=== PATIENT | female | born 1955 | race Caucasian/White ===

== ENCOUNTER → 2021-09-29 | Outpatient (CLI) | payer OTHER ==
[2021-09-29 16:22] LABS: BASOPHILS PERCENT AUTO 2 % (0-2); EOSINOPHILS ABSOLUTE AUTO 0.42 K/mm3 (0.00-0.68); EOSINOPHILS PERCENT AUTO 9 % (0-6); Hematocrit 39.6 % (33.0-51.0); Hemoglobin 13.1 g/dL (11.5-16.0); IMMATURE GRAN ABSOLUTE AUTO 0.02 K/mm3 (0.00-0.10); IMMATURE GRAN PERCENT AUTO 0 % (0-1); LYMPHOCYTES ABSOLUTE AUTO 1.26 K/mm3 (0.84-5.20); LYMPHOCYTES PERCENT AUTO 28 % (21-46); MONOCYTES ABSOLUTE AUTO 0.34 K/mm3 (0.16-1.47); MONOCYTES PERCENT AUTO 8 % (4-13); Mean Corpuscular HGB 28.7 pg (26.0-34.0); Mean Corpuscular HGB Conc 33.1 g/dL (31.5-36.5); Mean Corpuscular Volume 87 fL (80-100); Mean Platelet Volume 10.7 fL (9.1-12.4); NEUTROPHILS ABSOLUTE AUTO 2.41 K/mm3 (1.96-9.15); NEUTROPHILS PERCENT AUTO 53 % (41-73); Platelet Count 279 K/mm3 (150-400); RDW Coefficient Variation 13.5 % (11.7-14.2); RDW Standard Deviation 42.9 fL (35.1-46.3); Red Blood Cell Count 4.56 M/mm3 (3.80-5.20); White Blood Cell Count 4.55 K/mm3 (4.00-11.30)
[2021-09-29 17:05] LABS: Albumin, Blood 3.2 g/dL (3.4-5.0); Albumin/Globulin Ratio 0.8 (0.8-1.8); Bilirubin, Total 0.8 mg/dL (0.1-1.0); Bun/Creatinine Ratio 15.2 (12.0-20.0); Calcium, Blood 9.8 mg/dL (8.5-10.1); Creatinine, Blood 1.12 mg/dL (0.40-1.00); Globulin, Blood 4.2 g/dL (2.2-4.0); Potassium, Blood 3.5 mmol/L (3.5-5.5); Total Protein, Blood 7.4 g/dL (6.4-8.2)
== END | disposition home or self-care (01) ==
LOC: LAB SHORT 13:25
PROVIDERS: Internal Medicine Rheumatology
DX: M32.9 Systemic lupus erythematosus, unspecified (principal)
CPT/HCPCS: 80053; 85025; 85651

== ENCOUNTER → 2023-03-01 | Outpatient (CLI) | payer OTHER ==
[2023-03-02 15:59] LABS: BASOPHILS ABSOLUTE AUTO 0.12 K/mm3 (0.00-0.23); BASOPHILS PERCENT AUTO 2 % (0-2); EOSINOPHILS ABSOLUTE AUTO 0.64 K/mm3 (0.00-0.68); EOSINOPHILS PERCENT AUTO 10 % (0-6); Hematocrit 42.9 % (33.0-51.0); Hemoglobin 13.5 g/dL (11.5-16.0); IMMATURE GRAN ABSOLUTE AUTO 0.01 K/mm3 (0.00-0.10); IMMATURE GRAN PERCENT AUTO 0 % (0-1); LYMPHOCYTES ABSOLUTE AUTO 1.64 K/mm3 (0.84-5.20); LYMPHOCYTES PERCENT AUTO 27 % (21-46); MONOCYTES ABSOLUTE AUTO 0.48 K/mm3 (0.16-1.47); MONOCYTES PERCENT AUTO 8 % (4-13); Mean Corpuscular HGB Conc 31.5 g/dL (31.5-36.5); Mean Corpuscular Volume 92 fL (80-100); Mean Platelet Volume 10.4 fL (9.1-12.4); NEUTROPHILS ABSOLUTE AUTO 3.28 K/mm3 (1.96-9.15); NEUTROPHILS PERCENT AUTO 53 % (41-73); Platelet Count 323 K/mm3 (150-400); RDW Coefficient Variation 14.4 % (11.7-14.2); RDW Standard Deviation 48.7 fL (35.1-46.3); Red Blood Cell Count 4.65 M/mm3 (3.80-5.20); White Blood Cell Count 6.17 K/mm3 (4.00-11.30)
[2023-03-02 17:01] LABS: Albumin, Blood 3.6 g/dL (3.4-5.0); Bilirubin, Total 0.6 mg/dL (0.1-1.0); Bun/Creatinine Ratio 26.2 (12.0-20.0); Calcium, Blood 9.3 mg/dL (8.5-10.1); Creatinine, Blood 1.07 mg/dL (0.40-1.00); Globulin, Blood 3.6 g/dL (2.2-4.0); Potassium, Blood 3.7 mmol/L (3.5-5.5); Total Protein, Blood 7.2 g/dL (6.4-8.2)
== END | disposition home or self-care (01) ==
LOC: LAB SHORT 12:39
PROVIDERS: Internal Medicine Rheumatology
DX: M32.9 Systemic lupus erythematosus, unspecified (principal)
CPT/HCPCS: 80053; 85025; 85651

== ENCOUNTER 2024-10-13 05:59 | Day surgery (SDC) | payer OTHER ==
[2024-10-13] VITALS (17 sets, daily range): BP systolic 106–150; BP diastolic 47–79
[~2024-10-13] VITALS: Ht 167.6 cm; Wt 106.9 kg
[~2024-10-13 05:59] MED LIST: ALBU90OI INH; CYCL10 PO; DOCU100 PO; EUTHYROX25 MCG PO; FLONASE ALLERG9.9 ML; HYDCHL25 PO; Lisinopril2.5 MG PO; NAPR220 PO; PLAQUENIL200 MG PO; Serevent Disku50 MCG INH; TRAM50 PO; [UNRECOGNIZED DRUG - CODE] PO
[2024-10-13] MEDS ORDERED: Tranexamic Acid 100 ML IV SCH (06:20)
[2024-10-13] MEDS ORDERED: Lactated Ringer's 1,000 ML IV SCH ×2 (06:20→08:05)
[2024-10-13] MEDS ORDERED: Acetaminophen 500 MG Tab PO SCH ×2 (06:20→16:00)
[2024-10-13] MEDS ORDERED: Ropivacaine 0.5% HCl/Pf 123.125 MG,EPINEPHrine HCL 0.25 MG,Ketorolac Tromethamine 15 MG... INFIL SCH (06:20)
[2024-10-13] MEDS ORDERED: OxyCODONE HCL 10 MG TABCR PO SCH (06:20)
[2024-10-13] MEDS ORDERED: CeFAZolin Sodium 2,000 MG in NS 100 ML IV SCH ×2 (06:20→16:00)
[2024-10-13] MEDS ORDERED: Chlorhexidine Mouth Care 15 ML UDC MT SCH (06:20)
[2024-10-13] MEDS ORDERED: HYDHCL25 (06:29)
[2024-10-13] MEDS ORDERED: Midazolam HCl 1MG / ML 2ML Vial IV ONE (07:00)
[2024-10-13] MEDS ORDERED: propofoL 20 ML IV ONE ×2 (07:09→08:17)
[2024-10-13] MEDS ORDERED: FentaNYL Citrate 50 MCG/ML 2 ML Injection ONE (07:10)
[2024-10-13] MEDS ORDERED: Dexamethasone Sod Phos 10 MG/ML 1ML VIAL ONE (07:36)
[2024-10-13] MEDS ORDERED: Ketorolac Tromethamine 30mg Vial ONE (07:36)
[2024-10-13] MEDS ORDERED: Ondansetron HCl 2 MG / ML 2ML Vial ONE ×2 (07:36→09:17)
[2024-10-13] MEDS ORDERED: Metoclopramide HCl 5MG / ML 2ML Vial IV PRN (08:00)
[2024-10-13] MEDS ORDERED: Cyclobenzaprine HCl 10 MG Tab PO PRN (08:00)
[2024-10-13] MEDS ORDERED: Ondansetron HCl 2 MG / ML 2ML Vial IV PRN (08:00)
[2024-10-13] MEDS ORDERED: OxyCODONE HCL 5 MG TAB PO PRN ×2 (08:00)
[2024-10-13] MEDS ORDERED: Albuterol 2.5 MG/3 ML VIAL INH SCH (08:05)
[2024-10-13] MEDS ORDERED: Albuterol HFA200 ACT/6.7 GM INH INH PRN (08:05)
[2024-10-13] MEDS ORDERED: Magnesium Hydroxide Conc 10 ML UDC PO PRN (08:05)
[2024-10-13] MEDS ORDERED: DiphenhydrAMINE HCL 25 MG Cap PO PRN (08:05)
[2024-10-13] MEDS ORDERED: HYDROmorphone HCl/Pf 1MG SYR IV PRN (08:10)
[2024-10-13] MEDS ORDERED: Promethazine HCl 25 MG Tab PO PRN (08:10)
[2024-10-13] MEDS ORDERED: Bisacodyl 10 MG Supp PR PRN (08:10)
[2024-10-13] MEDS ORDERED: FLU VACC TS2024-25(6MOS UP)/PF 45 MCG/0.5 ML SYRINGE IM SCH (08:10)
[2024-10-13] MEDS ORDERED: HYDROmorphone HCl/Pf 1MG SYR ONE ×2 (08:18→09:38)
[2024-10-13] MEDS ORDERED: HyDROXyzine HCl 25 MG Tab PO SCH (09:00)
[2024-10-13] MEDS ORDERED: Lisinopril 5 MG Tab PO SCH (09:00)
[2024-10-13] MEDS ORDERED: Docusate Sodium 100 MG Cap PO SCH (09:00)
[2024-10-13] MEDS ORDERED: HydroCHLOROthiazide 25 mg Tab PO SCH (09:00)
[2024-10-13] MEDS ORDERED: Hydroxychloroquine Sulfate 200 MG Tab PO SCH (09:00)
[2024-10-13] MEDS ORDERED: Fluticasone 0.05% Nasal Spray SCH (09:00)
--- NOTE | 2024-10-13 10:00 | NUR ---
ARRIVAL NOTE PT TO ROOM 219 FROM PACU. VSS, PT AWAKE AND RESPONSIVE. PAIN TOLERABLE, PT TOLERATING PO FLUIDS AND CRACKERS. PAS, POLAR PACK ON. DRESSING C/D/I. CIRCULATION INTACT TO L FOOT. CALL LIGHT IN REACH.
[2024-10-13] MEDS ORDERED: Ketorolac Tromethamine 15mg Vial IV SCH (12:00)
--- NOTE | 2024-10-13 18:10 | NUR ---
SHIFT SUMMARY PT IS PODO FOR L TKA. TOLERATING REG DIET, VOIDING APPROPRIATELY, 1 ASST W/ FWW AND GB. PAIN IS TOLERABLE W/ SCHEDULED AND PRN MEDS PER EMAR. ADRI DAVIDSON, POLAR PACK ON. CIRCULATION TO L FOOT INTACT. VSS. FLUIDS AND IV ABX GIVEN PER EMAR. CALL LIGHT IN REACH, DAUGHTER AT BEDSIDE.
[2024-10-14 04:24] VITALS: BP 119/46
--- NOTE | 2024-10-14 04:28 | NUR ---
SHIFT SUMMARY POD 1 L TKA PT ABLE TO SLEEP DURING THE SHIFT. PAIN MANAGED PER EMAR. TOLERATING PO INTAKE. VOIDING. PT 1P ASST W/ FWW AND GB. AQUACEL TO L KNEE IS C/D/I. POLAR PAC IN PLACE DURING THE NIGHT. VSS. PLAN TO GET UP IN THE CHAIR THIS AM, THEN WOTH WITH THERAPY, AND D/C HOME. NO OTHER CONCERNS AT THIS TIME, CALL LIGHT WITHIN REACH
[2024-10-14 04:41] LABS: BASOPHILS ABSOLUTE AUTO 0.02 K/mm3 (0.00-0.23); BASOPHILS PERCENT AUTO 0 % (0-2); EOSINOPHILS PERCENT AUTO 0 % (0-6); Hematocrit 31.1 % (33.0-51.0); Hemoglobin 10.3 g/dL (11.5-16.0); IMMATURE GRAN ABSOLUTE AUTO 0.05 K/mm3 (0.00-0.10); IMMATURE GRAN PERCENT AUTO 1 % (0-1); LYMPHOCYTES ABSOLUTE AUTO 1.45 K/mm3 (0.84-5.20); LYMPHOCYTES PERCENT AUTO 14 % (21-46); MONOCYTES ABSOLUTE AUTO 0.85 K/mm3 (0.16-1.47); MONOCYTES PERCENT AUTO 8 % (4-13); Mean Corpuscular HGB 29.3 pg (26.0-34.0); Mean Corpuscular HGB Conc 33.1 g/dL (31.5-36.5); Mean Corpuscular Volume 88 fL (80-100); NEUTROPHILS ABSOLUTE AUTO 7.85 K/mm3 (1.96-9.15); NEUTROPHILS PERCENT AUTO 77 % (41-73); Platelet Count 250 K/mm3 (150-400); RDW Coefficient Variation 13.3 % (11.7-14.2); RDW Standard Deviation 43.5 fL (35.1-46.3); Red Blood Cell Count 3.52 M/mm3 (3.80-5.20); White Blood Cell Count 10.22 K/mm3 (4.00-11.30)
[2024-10-14 04:58] LABS: Bun/Creatinine Ratio 14.3 (12.0-20.0); Calcium, Blood 8.3 mg/dL (8.5-10.1); Creatinine, Blood 2.03 mg/dL (0.40-1.00); Magnesium, Blood 1.8 mg/dL (1.6-2.4); Potassium, Blood 4.1 mmol/L (3.5-5.5)
[2024-10-14] MEDS ORDERED: Levothyroxine Sodium 0.025 MG Tab PO SCH (06:00)
[2024-10-14 06:24] VITALS: BP 155/64
[2024-10-14 07:07] VITALS: BP 121/49
[2024-10-14] MEDS ORDERED: OXYC5 PO (08:14)
[2024-10-14] MEDS ORDERED: ACET500 PO (08:15)
[2024-10-14] MEDS ORDERED: SULTRIDS PO (08:16)
[2024-10-14] MEDS ORDERED: ASPI81CH PO (08:16)
[2024-10-14] MEDS ORDERED: Aspirin 81 MG Chew PO SCH (09:00)
[2024-10-14 12:46] VITALS: BP 129/50
--- NOTE | 2024-10-14 15:20 | NUR ---
DISCHARGE NOTE PT IS POD1 FOR L TKA, AMBULATING 1 ASST W/ FWW AND GB. PT IS TOLERATING REG DIET, VOIDING, MEDICATED FOR PAIN W/ SCHEDULED AND PRN MEDS PER EMAR, PAIN IS TOLERABLE. PT MEDICATED FOR NAUSEA TODAY BUT WAS ABLE TO TOLERATE REG DIET FOR BREAKFAST AND LUNCH. VSS. DRESSING C/D/I, CIRCULATION INTACT TO L FOOT. CHARGE NURSE REVIEWED DC INSTRUCTIONS W/ PT, COPY GIVEN TO PT WELL DRESSINGS. DR. CISNEROS [facility], [facility] AWARE. PT DC'D IN STABLE CONDITION TO PRIVATE RIDE HOME VIA W/ ALL PERSONAL BELONGINGS.
== END 2024-10-14 13:00 | disposition home or self-care (01) ==
LOC: ORSCMMR 05:59 → ORD 07:30 → SURS 09:49 → ORD 12:45 → ORSCMMR 23:00 → SURS 23:00 → ORSCMMR 10-14 13:00
PROVIDERS: Orthopaedic Surgery
PROC: 0SRD0JA Replacement of Left Knee Joint with Synthetic Substitute, Uncemented, Open Approach (ICD-10-PCS; principal; 2024-10-13 07:30)
DX: M17.12 Unilateral primary osteoarthritis, left knee (principal); I10 Essential (primary) hypertension; E03.9 Hypothyroidism, unspecified; Z79.899 Other long term (current) drug therapy; J45.909 Unspecified asthma, uncomplicated; M32.9 Systemic lupus erythematosus, unspecified; F43.10 Post-traumatic stress disorder, unspecified; E66.9 Obesity, unspecified; Z68.38 Body mass index [BMI] 38.0-38.9, adult
CPT/HCPCS: 27447; 0055T; 36415; 73560-LT; 80048; 83735; 85025; 94760; 97110; 97116; 97161; 97530; A9270; C1713; C1776; J0171; J0690; J0735; J1100; J1171; J1885; J2250; J2405; J2704; J2765; J2795; J3010; J7120

== ENCOUNTER → 2024-11-19 | Outpatient (CLI) | payer SELFPAY ==
[~2024-11-19] MED LIST changes: +ACET500 PO; +ASPI81CH PO; +HYDHCL25; +OXYC5 PO; +SULTRIDS PO
[2024-11-19 17:16] LABS: BASOPHILS ABSOLUTE AUTO 0.06 K/mm3 (0.00-0.23); BASOPHILS PERCENT AUTO 1 % (0-2); EOSINOPHILS ABSOLUTE AUTO 0.23 K/mm3 (0.00-0.68); EOSINOPHILS PERCENT AUTO 4 % (0-6); Hematocrit 36.4 % (33.0-51.0); Hemoglobin 12.2 g/dL (11.5-16.0); IMMATURE GRAN ABSOLUTE AUTO 0.01 K/mm3 (0.00-0.10); IMMATURE GRAN PERCENT AUTO 0 % (0-1); LYMPHOCYTES PERCENT AUTO 30 % (21-46); MONOCYTES ABSOLUTE AUTO 0.48 K/mm3 (0.16-1.47); MONOCYTES PERCENT AUTO 9 % (4-13); Mean Corpuscular HGB 29.7 pg (26.0-34.0); Mean Corpuscular HGB Conc 33.5 g/dL (31.5-36.5); Mean Corpuscular Volume 89 fL (80-100); Mean Platelet Volume 10.8 fL (9.1-12.4); NEUTROPHILS ABSOLUTE AUTO 2.94 K/mm3 (1.96-9.15); NEUTROPHILS PERCENT AUTO 55 % (41-73); Platelet Count 271 K/mm3 (150-400); RDW Coefficient Variation 13.5 % (11.7-14.2); Red Blood Cell Count 4.11 M/mm3 (3.80-5.20); White Blood Cell Count 5.32 K/mm3 (4.00-11.30)
[2024-11-19 18:22] LABS: Albumin, Blood 3.7 g/dL (3.4-5.0); Bilirubin, Total 0.6 mg/dL (0.1-1.0); Bun/Creatinine Ratio 20.8 (12.0-20.0); Calcium, Blood 10.3 mg/dL (8.5-10.1); Creatinine, Blood 1.01 mg/dL (0.40-1.00); Globulin, Blood 3.6 g/dL (2.2-4.0); Potassium, Blood 3.6 mmol/L (3.5-5.5); Total Protein, Blood 7.3 g/dL (6.4-8.2)
== END ==
LOC: LAB 16:20 → LAB SHORT 16:20
PROVIDERS: Internal Medicine Rheumatology
DX: M32.9 Systemic lupus erythematosus, unspecified (principal)
CPT/HCPCS: 80053; 85025; 85651

== ENCOUNTER 2025-03-09 08:00 | Day surgery (SDC) | payer OTHER ==
[2025-03-09] VITALS (19 sets, daily range): BP systolic 110–148; BP diastolic 49–107
[~2025-03-09] VITALS: Ht 167.6 cm; Wt 102.6 kg
[~2025-03-09 08:00] MED LIST changes: +1/2 NS 250ml250 ML; +CALCIUM CIT 311 EAC7 PO; -HYDHCL25; +HYDHCL25 PO; +Prednisone10 MG PO
[2025-03-09] MEDS ORDERED: Acetaminophen 500 MG Tab PO SCH ×2 (08:05→16:00)
[2025-03-09] MEDS ORDERED: Ropivacaine 0.5% HCl/Pf 123.125 MG,EPINEPHrine HCL 0.25 MG,Ketorolac Tromethamine 15 MG... INFIL SCH (08:05)
[2025-03-09] MEDS ORDERED: Chlorhexidine Mouth Care 15 ML UDC MT SCH (08:05)
[2025-03-09] MEDS ORDERED: Lactated Ringer's 1,000 ML IV SCH ×2 (08:05→11:20)
[2025-03-09] MEDS ORDERED: CeFAZolin Sodium 2,000 MG in NS 100 ML IV SCH ×2 (08:05→18:00)
[2025-03-09] MEDS ORDERED: OxyCODONE HCL 10 MG TABCR PO SCH (08:05)
[2025-03-09] MEDS ORDERED: Tranexamic Acid 100 ML IV SCH (08:06)
--- NOTE | 2025-03-09 09:31 | NUR ---
Ambulatory in Day Surgery. History, Chart, Medications and Allergies reviewed before start of procedure. Surgical site prepped with 2% Chlorhexidine cloth wipe. Patient confirms NPO status and agrees with scheduled surgery. Pre-Op teaching done. Pt verbalizes understanding. Patient States Post-Procedure ride home has been arranged. Pt belongings to OR with pt. Pts glasses with daughter.
[2025-03-09] MEDS ORDERED: propofoL 20 ML IV ONE ×2 (10:13→11:17)
[2025-03-09] MEDS ORDERED: FentaNYL Citrate 50 MCG/ML 2 ML Injection ONE (10:15)
[2025-03-09] MEDS ORDERED: PredniSONE 10 MG Tab PO PRN (10:45)
[2025-03-09] MEDS ORDERED: OxyCODONE HCL 5 MG TAB PO PRN ×2 (10:45→10:50)
[2025-03-09] MEDS ORDERED: Metoclopramide HCl 5MG / ML 2ML Vial IV PRN (11:20)
[2025-03-09] MEDS ORDERED: Bisacodyl 10 MG Supp PR PRN (11:20)
[2025-03-09] MEDS ORDERED: Magnesium Hydroxide Conc 10 ML UDC PO PRN (11:20)
[2025-03-09] MEDS ORDERED: DiphenhydrAMINE HCL 25 MG Cap PO PRN (11:20)
[2025-03-09] MEDS ORDERED: HYDROmorphone HCl/Pf 1MG SYR IV PRN (11:20)
[2025-03-09] MEDS ORDERED: Ondansetron HCl 2 MG / ML 2ML Vial IV PRN (11:20)
[2025-03-09] MEDS ORDERED: Promethazine HCl 25 MG Tab PO PRN (11:25)
[2025-03-09] MEDS ORDERED: Sugammadex Sodium 200 MG/2ML SDV (100 MG/ML) ONE (11:34)
[2025-03-09] MEDS ORDERED: Lidocaine HCl 2% 20 ML MDV ONE (11:46)
[2025-03-09] MEDS ORDERED: Rocuronium Bromide 10 MG/ML 5ML Injection IV ONE (11:46)
[2025-03-09] MEDS ORDERED: Ondansetron HCl 2 MG / ML 2ML Vial ONE ×2 (11:46→11:53)
[2025-03-09] MEDS ORDERED: Dexamethasone Sod Phos 10 MG/ML 1ML VIAL ONE (11:46)
[2025-03-09] MEDS ORDERED: HYDROmorphone HCl/Pf 1MG SYR ONE ×3 (11:47→12:21)
[2025-03-09] MEDS ORDERED: Lactated Ringer's 1,000 ML IV ONE (11:52)
[2025-03-09] MEDS ORDERED: Metoclopramide HCl 5MG / ML 2ML Vial ONE (11:53)
[2025-03-09] MEDS ORDERED: Ketorolac Tromethamine 15mg Vial IV SCH (12:00)
[2025-03-09] MEDS ORDERED: Ketorolac Tromethamine 30mg Vial ONE (12:32)
[2025-03-09] MEDS ORDERED: ASPI81CH PO (16:17)
[2025-03-09] MEDS ORDERED: DOCU100 PO (16:18)
[2025-03-09] MEDS ORDERED: OXYC5 PO (16:18)
--- NOTE | 2025-03-09 16:39 | NUR ---
DISCHARGE SUMMARY PT IS TOLERATING FLUIDS AND FOOD WELL. AMBULATES WITH MINIMAL ASSISANCE & WALKER. STATES PAIN IS CONTROLLED WELL. WORKED WITH THERAPY. SURGICAL SITE WNL. RX. AND DRESSINGS SENT. ESCORTED OUT VIA WC.
[2025-03-09] MEDS ORDERED: Docusate Sodium 100 MG Cap PO SCH (21:00)
[2025-03-10] MEDS ORDERED: HyDROXyzine HCl 25 MG Tab PO SCH (09:00)
[2025-03-10] MEDS ORDERED: Aspirin 81 MG Chew PO SCH (09:00)
[2025-03-10] MEDS ORDERED: Lisinopril 5 MG Tab PO SCH (09:00)
== END 2025-03-09 16:39 | disposition home or self-care (01) ==
LOC: ORSCMMR 08:00 → ORD 08:30 → ORSCMMR 09:30 → SURS 12:48 → ORSCMMR 16:39
PROVIDERS: Orthopaedic Surgery
PROC: 0SRC0JA Replacement of Right Knee Joint with Synthetic Substitute, Uncemented, Open Approach (ICD-10-PCS; principal; 2025-03-09 10:00)
DX: M17.11 Unilateral primary osteoarthritis, right knee (principal); J45.909 Unspecified asthma, uncomplicated; F43.10 Post-traumatic stress disorder, unspecified; E07.9 Disorder of thyroid, unspecified; Z79.899 Other long term (current) drug therapy
CPT/HCPCS: 73560-RT; 97110; 97116; 97162; A9270; C1713; C1776; J0171; J0690; J0735; J1100; J1171; J1885; J2405; J2704; J2765; J2795; J3010; J7120

== ENCOUNTER → 2025-03-19 | Outpatient (CLI) | payer OTHER ==
[2025-03-19 19:39] LABS: BASOPHILS ABSOLUTE AUTO 0.07 K/mm3 (0.00-0.23); BASOPHILS PERCENT AUTO 1 % (0-2); EOSINOPHILS PERCENT AUTO 4 % (0-6); Hematocrit 32.8 % (33.0-51.0); Hemoglobin 10.7 g/dL (11.5-16.0); IMMATURE GRAN PERCENT AUTO 0 % (0-1); LYMPHOCYTES ABSOLUTE AUTO 1.13 K/mm3 (0.84-5.20); LYMPHOCYTES PERCENT AUTO 22 % (21-46); MONOCYTES ABSOLUTE AUTO 0.45 K/mm3 (0.16-1.47); MONOCYTES PERCENT AUTO 9 % (4-13); Mean Corpuscular HGB 30.1 pg (26.0-34.0); Mean Corpuscular HGB Conc 32.6 g/dL (31.5-36.5); Mean Corpuscular Volume 92 fL (80-100); Mean Platelet Volume 10.1 fL (9.1-12.4); NEUTROPHILS ABSOLUTE AUTO 3.41 K/mm3 (1.96-9.15); NEUTROPHILS PERCENT AUTO 65 % (41-73); Platelet Count 438 K/mm3 (150-400); RDW Coefficient Variation 12.6 % (11.7-14.2); RDW Standard Deviation 42.3 fL (35.1-46.3); Red Blood Cell Count 3.55 M/mm3 (3.80-5.20); White Blood Cell Count 5.26 K/mm3 (4.00-11.30)
[2025-03-19 20:14] LABS: Albumin, Blood 3.2 g/dL (3.4-5.0); Bilirubin, Total 0.6 mg/dL (0.1-1.0); Bun/Creatinine Ratio 24.1 (12.0-20.0); Globulin, Blood 3.2 g/dL (2.2-4.0); Potassium, Blood 4.2 mmol/L (3.5-5.5); Total Protein, Blood 6.4 g/dL (6.4-8.2)
== END ==
LOC: LAB 17:30 → LAB SHORT 17:30
PROVIDERS: Internal Medicine Rheumatology
DX: M32.9 Systemic lupus erythematosus, unspecified (principal)
CPT/HCPCS: 80053; 85025; 85651